=== PATIENT | female | born 1985 | race Caucasian/White ===

== ENCOUNTER 2021-09-13 16:01 | Emergency (ER) | payer MEDICAID | END 2021-09-13 18:23 | disposition home or self-care (01) | LOC: MW.ED 16:01 | DX: S59.901A Unspecified injury of right elbow, initial encounter (principal); Z91.040 Latex allergy status; Z86.16 Personal history of COVID-19; W22.09XA Striking against other stationary object, initial encounter; Y99.0 Civilian activity done for income or pay | CPT/HCPCS: 73080-26-RT; 73080-RT; 99282; 99283-25 ==

== ENCOUNTER 2021-10-15 11:08 | Emergency (ER) | payer MEDICAID ==
[2021-10-15] MEDS ORDERED: Ketorolac 60 MG/2 ML SDV IM ONE (13:52)
== END 2021-10-15 15:16 | disposition home or self-care (01) ==
LOC: MW.ED 11:08
DX: S89.91XA Unspecified injury of right lower leg, initial encounter (principal); Z91.040 Latex allergy status; Z79.899 Other long term (current) drug therapy; Z86.16 Personal history of COVID-19; X50.1XXA Overexertion from prolonged static or awkward postures, initial encounter
CPT/HCPCS: 73590; 93971; 96372; 99284; J1885